=== PATIENT | female | born 1995 | race Two or more races ===

== ENCOUNTER 2020-05-16 19:36 | Inpatient (IN) ==
[2020-05-16] MEDS ORDERED: Lactated Ringers 1000 ml BAG 1,000 ML IV SCH ×2 (21:00→22:00)
[2020-05-16] MEDS ORDERED: Buffered Lidocaine 1% SYRIN 1 ml INTRADERM ONE (21:00)
[2020-05-16] MEDS ORDERED: Lactated Ringers 1000 ml BAG 1,000 ML IV ONE (21:00)
[2020-05-16] MEDS ORDERED: Dibucaine 1% OINT 28.35 GM TUBE PR PRN (21:59)
[2020-05-16] MEDS ORDERED: Witch Hazel PAD JAR TOPICAL PRN (21:59)
[2020-05-16] MEDS ORDERED: Glycerin ADULT 2.4 gm SUPP PR PRN (21:59)
[2020-05-16] MEDS ORDERED: Oxytocin 10 UNITS/ML 1 ML VIAL IM ONE (21:59)
[2020-05-16 23:13] LABS: Urine Benzodiazepine Screen None Detected (None Detect); Urine Cannabinoids Screen None Detected (None Detect); Urine Opiates Screen None Detected (None Detect)
[2020-05-16] MEDS ORDERED: Lidocaine 1% VIAL 10 MG/ML VIAL ONE (23:59)
[2020-05-17 06:55] LABS: ABS Lymphocytes 2.1 10^3/ul (1.0-4.8); ABS Monocytes 1.2 10^3/ul (0-0.8); ABS Neutrophils 10.1 10^3/ul (1.5-7.7); Eosinophil % 0.1 %; Hematocrit 35 % (35-47); Hemoglobin 11.6 g/dL (12.0-16.0); Lymphocyte % 15.9 %; Mean Corpuscular HGB Conc 34 g/dL (31-36); Mean Corpuscular Hemoglobin 33 pg (27-31); Mean Corpuscular Volume 98 fL (80-97); Mean Platelet Volume 8.3 fL (7.4-10.4); Platelet Count 273 10^3/uL (150-450); Red Blood Count 3.54 10^6 /uL (3.70-4.87); Red Cell Distribution Width 14 % (10-15); White Blood Count 13.5 10^3/uL (3.5-10.8)
[2020-05-18 07:46] VITALS: BP 105/58
== END 2020-05-18 13:45 | disposition home or self-care (01) | DRG 560 ==
LOC: MCHOBOUT 19:36 → MCHOB 20:54
PROVIDERS: ADMIT Midwife; ATTEND Midwife